=== PATIENT | male | born 1975 | race Caucasian/White ===

== ENCOUNTER 2020-04-05 13:24 | Inpatient (IN) | payer MEDICARE ==
[2020-04-05] VITALS (9 sets, daily range): BP systolic 95–117; BP diastolic 51–75
[~2020-04-05] VITALS: Ht 167.6 cm; Wt 64.9 kg
[2020-04-05 14:04] LABS: BE -4.1 mmol/L (-2 to +3); PCO2 VENOUS 35.6 mmHg (41.0-51.0); PO2 VENOUS 128.1 mmHg (35.0-45.0)
[2020-04-05 14:05] LABS: ABSOLUTE BASOPHILS 0.1 thou/uL (0.0-0.2); ABSOLUTE EOSINOPHILS 0.1 thou/uL (0.0-0.7); BASOPHILS 0.8 %; EOSINOPHILS 1.9 %; HEMATOCRIT 46.9 % (42.0-52.0); LYMPHOCYTES 13.8 %; MCHC 32.1 g/dL (28.0-37.0); MCV 93.5 fL (80.0-100.0); MONOCYTES 14.3 %; MPV 9.3 fl. (7.2-11.1); NUCLEATED RBCS 0 /100WBC; PLATELET COUNT* 181 thou/uL (150-400); POLYS 69.2 %; RBC 5.02 mil/uL (4.50-6.00); RDW-CV 13.2 % (10.5-14.5); WBC 7.3 thou/uL (4.0-11.0)
[2020-04-05 14:07] LABS: URINE BILIRUBIN NEGATIVE (Negative); URINE BLOOD TRACE (Negative); URINE CLARITY CLEAR; URINE COLOR YELLOW; URINE GLUCOSE-RANDOM 3+ (Negative); URINE KETONES NEGATIVE (Negative); URINE LEUKOCYTES-REFLEX TRACE (Negative); URINE NITRITE-REFLEX NEGATIVE (Negative); URINE PROTEIN NEGATIVE (Negative); URINE SPECIFIC GRAVITY <= 1.005 (1.005-1.030); URINE UROBILINOGEN 0.2 E.U./dl (0.2-1.0)
[2020-04-05 14:21] LABS: SQUAMOUS 4-10 Moderate /LPF (0-3)
[2020-04-05 14:22] LABS: BACTERIA-REFLEX 1-9 Few /HPF (None Seen); CASTS None Seen /LPF (None Seen); CRYSTALS None Seen /LPF (None Seen); MUCUS None Seen strn/LPF (None Seen); URINE RBC 0-2 Rare /HPF (0-2); URINE WBC-REFLEX 0-5 Rare /HPF (0-5); YEAST-REFLEX Present (None Seen)
[2020-04-05 14:39] LABS: CALCIUM 8.5 mg/dL (8.5-10.1); CREATININE 1.1 mg/dL (0.6-1.3); POTASSIUM 3.7 mmol/L (3.5-5.1)
[2020-04-05 14:47] LABS: ALBUMIN 2.7 g/dL (3.4-5.0); TOTAL BILIRUBIN 0.4 mg/dL (<0.1-1.0); TOTAL PROTEIN 6.4 g/dL (6.4-8.2)
--- NOTE | 2020-04-05 15:38 | EKG ---
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 : 1975 Requested By: Ruben Weir Order Number: [id number] MD: Branden Bailey Measurements Intervals Turner Rate: 105 P: 75 OR: 161 QRS: 68 QRSD: 87 T: 8 QT: 348 QTc: 461 Interpretive Statements Sinus tachycardia Left atrial enlargement Borderline low voltage, extremity leads Possible anteroseptal infarct, old Borderline ST elevation, lateral leads Baseline wander in lead(s) V1,V2 No previous ECG available for comparison Electronically Signed On 04-05-2020 15:38:34 SHOT GRINDER OPERATOR by Branden Bailey [email or web address] <ELECTRONICALLY SIGNED> By: Branden Bailey MD, FACC 04/05/20 1538 1406 1406 Branden Bailey MD, FACC /EPI
[2020-04-05 17:48] LABS: MAGNESIUM 1.7 mg/dL (1.8-2.4)
[2020-04-05 19:30] LABS: ALBUMIN 2.4 g/dL (3.4-5.0); CALCIUM 7.7 mg/dL (8.5-10.1); CREATININE 0.8 mg/dL (0.6-1.3); MAGNESIUM 1.6 mg/dL (1.8-2.4); PHOSPHORUS* 2.7 mg/dL (2.5-4.9)
[2020-04-05 19:33] LABS: POTASSIUM 2.9 mmol/L (3.5-5.1)
[2020-04-05 23:18] LABS: ALBUMIN 2.3 g/dL (3.4-5.0); CALCIUM 7.9 mg/dL (8.5-10.1); CREATININE 0.6 mg/dL (0.6-1.3); MAGNESIUM 1.7 mg/dL (1.8-2.4); PHOSPHORUS* 3.8 mg/dL (2.5-4.9); POTASSIUM 3.8 mmol/L (3.5-5.1)
[2020-04-06] VITALS (10 sets, daily range): BP systolic 81–97; BP diastolic 47–56
[2020-04-06 03:19] LABS: HEMATOCRIT 38.3 % (42.0-52.0); MCH 29.4 pg (26.0-34.0); MCHC 33.1 g/dL (28.0-37.0); MCV 88.9 fL (80.0-100.0); MPV 8.8 fl. (7.2-11.1); RBC 4.31 mil/uL (4.50-6.00); RDW-CV 13.3 % (10.5-14.5); WBC 8.8 thou/uL (4.0-11.0)
[2020-04-06 03:21] LABS: HEMOGLOBIN 12.7 gm/dL (14.0-18.0)
[2020-04-06 03:30] LABS: ALBUMIN 2.1 g/dL (3.4-5.0); CALCIUM 7.9 mg/dL (8.5-10.1); CREATININE 0.7 mg/dL (0.6-1.3); MAGNESIUM 1.6 mg/dL (1.8-2.4); PHOSPHORUS* 3.4 mg/dL (2.5-4.9); POTASSIUM 3.7 mmol/L (3.5-5.1)
[2020-04-06 07:48] LABS: ALBUMIN 2.1 g/dL (3.4-5.0); CALCIUM 7.3 mg/dL (8.5-10.1); CREATININE 0.6 mg/dL (0.6-1.3); MAGNESIUM 1.6 mg/dL (1.8-2.4); PHOSPHORUS* 2.9 mg/dL (2.5-4.9); POTASSIUM 3.6 mmol/L (3.5-5.1)
[2020-04-07 03:29] LABS: ABSOLUTE BASOPHILS 0.1 thou/uL (0.0-0.2); ABSOLUTE EOSINOPHILS 0.5 thou/uL (0.0-0.7); BASOPHILS 0.8 %; EOSINOPHILS 5.3 %; HEMATOCRIT 37.1 % (42.0-52.0); HEMOGLOBIN 12.3 gm/dL (14.0-18.0); LYMPHOCYTES 23.1 %; MCH 30.2 pg (26.0-34.0); MCHC 33.3 g/dL (28.0-37.0); MCV 90.7 fL (80.0-100.0); MONOCYTES 11.5 %; MPV 8.5 fl. (7.2-11.1); NUCLEATED RBCS 0 /100WBC; PLATELET COUNT* 171 thou/uL (150-400); POLYS 59.3 %; RBC 4.09 mil/uL (4.50-6.00); RDW-CV 13.2 % (10.5-14.5); WBC 8.5 thou/uL (4.0-11.0)
[2020-04-07 03:54] LABS: ALBUMIN 2.1 g/dL (3.4-5.0); ALKALINE PHOSPHATASE 103 U/L (46-116); ANION GAP 5 mmol/L (7-16); BUN 7 mg/dL (7-18); CHLORIDE 104 mmol/L (98-107); CO2 28 mmol/L (21-32); CREATININE 0.7 mg/dL (0.6-1.3); GLUCOSE 113 mg/dL (70-99); PHOSPHORUS* 2.6 mg/dL (2.5-4.9); POTASSIUM 3.5 mmol/L (3.5-5.1); SGOT 19 U/L (15-37); SGPT 32 U/L (30-65); SODIUM 137 mmol/L (136-145); TOTAL BILIRUBIN 0.2 mg/dL (<0.1-1.0); TOTAL PROTEIN 5.3 g/dL (6.4-8.2)
[2020-04-07] MEDS ORDERED: GLUCOTROL5 MG PO (07:22)
[2020-04-07] MEDS ORDERED: INSULIN SYRING1 EA10 SUBQ (07:22)
[2020-04-07] MEDS ORDERED: HUMULINR100 SUBQ (07:22)
[2020-04-07] MEDS ORDERED: HUMULIN N100 UNIT/1 SUBQ (07:22)
[2020-04-07 08:00] VITALS: BP 120/65
[2020-04-07 10:10] VITALS: BP 82/47
[2020-04-07 11:37] VITALS: BP 110/50
== END 2020-04-07 10:56 | disposition home or self-care (01) | DRG 638 ==
LOC: M.ERS 13:24 → M.TBA-ER 15:11 → M.ICU 15:11
PROVIDERS: Emergency Medicine Emergency Medical Services; ADMIT Internal Medicine; ATTEND Internal Medicine
DX: E11.10 Type 2 diabetes mellitus with ketoacidosis without coma (principal); E87.1 Hypo-osmolality and hyponatremia; F17.210 Nicotine dependence, cigarettes, uncomplicated; L73.8 Other specified follicular disorders; E11.65 Type 2 diabetes mellitus with hyperglycemia; Z20.828 Contact with and (suspected) exposure to other viral communicable diseases; E11.00 Type 2 diabetes mellitus with hyperosmolarity without nonketotic hyperglycemic-hyperosmolar coma (NKHHC); Z79.899 Other long term (current) drug therapy; Z88.6 Allergy status to analgesic agent; Z88.2 Allergy status to sulfonamides; Z28.21 Immunization not carried out because of patient refusal; Z59.0 Homelessness; Z23 Encounter for immunization